=== PATIENT | male | born 1945 ===

== ENCOUNTER 2023-03-24 11:45 | Outpatient (CLI) | payer OTHER | END 2023-03-24 11:46 | disposition home or self-care (01) | LOC: PET 11:45 | PROVIDERS: ATTEND Otolaryngology | DX: C44.222 Squamous cell carcinoma of skin of right ear and external auricular canal (principal); D04.4 Carcinoma in situ of skin of scalp and neck; K11.8 Other diseases of salivary glands | CPT/HCPCS: 78815; A9552 ==